=== PATIENT | female | born 1970 | race Caucasian/White ===

== ENCOUNTER → 2024-01-19 13:58 | Outpatient (REF) | payer BC, SELFPAY | LOC: HWWDC 13:58 | PROVIDERS: ATTENDING PHYSICIAN Nurse Practitioner Family | DX: Z12.31 Encounter for screening mammogram for malignant neoplasm of breast (principal) | CPT/HCPCS: 77063; 77067 ==

== ENCOUNTER → 2024-01-26 08:37 | Outpatient (REF) | payer BC, SELFPAY | LOC: WDC 08:37 | PROVIDERS: ATTENDING PHYSICIAN Nurse Practitioner Family | DX: R92.8 Other abnormal and inconclusive findings on diagnostic imaging of breast (principal) | CPT/HCPCS: 77065 ==

== ENCOUNTER → 2024-02-09 13:04 | Outpatient (REF) | payer BC, SELFPAY | LOC: RCS 13:04 | PROVIDERS: ATTENDING PHYSICIAN Nurse Practitioner Family | DX: R60.9 Edema, unspecified (principal); Z82.49 Family history of ischemic heart disease and other diseases of the circulatory system | CPT/HCPCS: 93306 ==

== ENCOUNTER → 2024-07-25 11:13 | Outpatient (REF) | payer BC, SELFPAY | LOC: WDC 11:13 | PROVIDERS: ATTENDING PHYSICIAN Nurse Practitioner Family | DX: R92.8 Other abnormal and inconclusive findings on diagnostic imaging of breast (principal) | CPT/HCPCS: 77061; 77065 ==

== ENCOUNTER 2024-10-07 23:48 | Emergency (ER) | payer BC, SELFPAY ==
[2024-10-07 23:50] VITALS: BP 160/94
[2024-10-08 00:35] VITALS: BMI 41.6
--- NOTE | 2024-10-08 01:00 | ED.GENMED ---
History of Present Illness
General
Chief Complaint: Back Pain
Time Seen by Provider: 10/08/24 00:34
History of Present Illness
History of Present Illness:
Patient is a 54-year-old woman with history of factor V Leiden, prior PE not currently on anticoagulation presenting to close left flank pain. Patient states that she had a fall last week. She did not notice any back pain up until yesterday. She
does state that she might have been distracted from the knee pain. However for the past day she has had left-sided back pain. It has been slowly traveling up her back. She is concerned that she might have a blood clot as her grandfather was
diagnosed with his PE with back pain that they first thought was musculoskeletal pain. No hemoptysis. No leg swelling. No long car rides or plane rides. No urinary symptoms. The pain is worse with movement.
Past History
Past History
ED Past Medical History: Asthma (Allergy induced) and Other (Pulmonary emboli, Factor Five Leiden)
ED Past Surgical History: Appendectomy and Cholecystectomy
Social History
Tobacco: Non-smoker
Alcohol: Occasional
Personal:
Living: with family
Employment: Employed
Family History
Family History: Negative Early CAD or Sudden
Phy Exam
Physical Exam
Physical Exam:
GENERAL: in no acute distress
HEENT: normocephalic, extraocular movements intact, moist oral mucosa
NECK: normal inspection
Back: Tenderness to palpation to the upper mid back, no rash
RESPIRATORY: no respiratory distress, clear to auscultation bilaterally
CARDIOVASCULAR: regular rate and rhythm
ABDOMEN/: soft, non-distended, non-tender to palpation, no rebound or guarding, no CVA tenderness
EXTREMITIES: non-tender, no edema/swelling
NEUROLOGIC: awake and alert, moves all extremities
SKIN: warm
Course
Orders/Labs/Results
Orders:
Orders
10/08/24 00:35
HCG, Urine Qualitative Screen Urgent
Date Specimen was Collected: 10/08/24
Time Specimen was Collected: 00:24
Comment: ADD ON
Urinalysis Reflex To Culture Urgent
Date Specimen was Collected: 10/08/24
Time Specimen was Collected: 00:24
Urine Microscopic Reflex Cult Urgent
10/08/24 00:58
Acetaminophen [Tylenol] 650 mg PO NOW STA
Ketorolac [Toradol] 15 mg IM NOW STA
10/08/24 00:59
Add On- LAB Urgent
Tests Added?: urine hcg qual
10/08/24 01:11
Lidocaine [Lidocaine 4% Patch] 1 patch .ROUTE .[facility]
10/08/24 01:21
Basic Metabolic Panel Urgent
D-Dimer Urgent
10/08/24 08:00
Lidocaine [Lidocaine 4% Patch] 1 patch TOPICAL DAILY
Apply Lidocaine patch(s) to:: left mid back
Abnormal Lab Results
10/08/24
00:35
Ur Occult Blood Reflex 1+ A
(Negative)
Urine Bacteria (Reflex) Few A
(Negative)
Vital Signs
Initial and Last Documented VS:
Initial Vital Signs
Pulse Resp BP Pulse Ox
80 20 160/94 99
10/07/24 23:50 10/07/24 23:50 10/07/24 23:50 10/07/24 23:50
Last Documented Vital Signs
Temp Pulse Resp BP Pulse Ox
98.2 F 80 20 160/94 99
10/08/24 00:37 10/07/24 23:50 10/07/24 23:50 10/07/24 23:50 10/07/24 23:50
MDM/Problems Addressed
Differential Diagnosis Includes:
Patient is a 54-year-old woman with history of factor V deficiency, prior PE not on anticoagulation presenting to the emergency department with left back pain. Vitals are unremarkable and exam does show reproducible tenderness. Likely
musculoskeletal pain. Considered urine infection or PE though less likely. History and exam not consistent with kidney stone. Will treat with anti-inflammatory.
*Critical Care Note
Total Time (30-74mins, 75-104mins- exclusive of procedures): Not Applicable
Update Note
Update Note:
Patient called back to bedside as she states that she is flying out for a work trip for the next week. She is extremely worried about a blood clot and would like that to be ruled out. Will place basic blood work and check a D-dimer.
Urine is contaminated with significant epithelial cells. However patient really without any urinary symptoms so we will hold off on repeating. She is not . Pending blood work at this time. Patient signed out to oncoming attending pending
blood work.
ED Attending Note
-
Portions of this chart may have been created with voice recognition software.� Occasional wrong word or��sound alike� substitutions may have occurred due to the inherent limitations of voice recognition software.
Discharge Plan
Departure
Prescriptions:
No Action
prenat.vits,freddy,[id number] [ Vitamin] 1 TAB tablet
1 tab PO
Referrals:
Samson Guerrero CRNP [Family Provider] -
Interventions
Interventions:
*Risk Screen - Suicide Last Done: 10/07/24 23:50
*General Assessment Last Done: 10/07/24 23:50
*Neglect/Abuse Screening Last Done: 10/07/24 23:50
ED- Fall Risk Assessment Last Done: 10/07/24 23:50
*ED COVID-19 Vaccine History Last Done: 10/07/24 23:50
ED-Musculoskeletal Assessment Last Done: 10/08/24 00:46
Discharge Date and Time
Print Language: FAROESE
[2024-10-08 01:06] LABS: Urine Albumin Negative (Neg - Trace); Urine Bilirubin Negative (Negative); Urine Character Clear (Clear); Urine Color Yellow; Urine Glucose Negative (Negative); Urine Ketone Negative (Negative); Urine Leukocyte Negative (Negative); Urine Nitrite Negative (Negative); Urine Occult Blood 1+ (Negative); Urine Urobilinogen Negative (Neg - 1+)
[2024-10-08 01:16] LABS: HCG, Urine Qualitative Screen Negative
[2024-10-08] MEDS: LIDOCAINE 4% PATCH 1 PATCH TOPICAL (01:18)
[2024-10-08] MEDS: TYLENOL 650 MG PO (01:19)
[2024-10-08] MEDS: TORADOL 15 MG IM (01:19)
[2024-10-08 01:35] LABS: Urine Bacteria Few (Negative); Urine Red Blood Cell 0-2 /HPF (0-2); Urine Squamous Cell >30 /LPF (Few); Urine White Cell 0-2 /HPF (0-5)
[2024-10-08 01:46] LABS: D-Dimer 0.76 ug/mlFEU (0.00-0.50)
[2024-10-08 01:48] LABS: Blood Urea Nitrogen 16 mg/dl (7-17); Calcium 9.6 mg/dl (8.4-10.2); Carbon Dioxide 23 mmol/L (22-30); Chloride 105 mmol/L (98-107); Estimated Creatinine Clearance 113 ml/min; Glucose 107 mg/dl (70-99); Potassium 4.6 mmol/L (3.5-5.1); Sodium 137 mmol/L (135-145); eGFR > 60.00
[2024-10-08 02:21] VITALS: BP 125/72
--- NOTE | 2024-10-08 03:37 | ED.GENMED ---
History of Present Illness
General
Chief Complaint: Back Pain
Time Seen by Provider: 10/08/24 00:34
Past History
Past History
ED Past Medical History: Asthma (Allergy induced) and Other (Pulmonary emboli, Factor Five Leiden)
ED Past Surgical History: Appendectomy and Cholecystectomy
Social History
Tobacco: Non-smoker
Alcohol: Occasional
Personal:
Living: with family
Employment: Employed
Family History
Family History: Negative Early CAD or Sudden
Course
Orders/Labs/Results
Orders:
Orders
10/08/24 00:35
HCG, Urine Qualitative Screen Urgent
Date Specimen was Collected: 10/08/24
Time Specimen was Collected: 00:24
Comment: ADD ON
Urinalysis Reflex To Culture Urgent
Date Specimen was Collected: 10/08/24
Time Specimen was Collected: 00:24
Urine Microscopic Reflex Cult Urgent
10/08/24 00:58
Acetaminophen [Tylenol] 650 mg PO NOW STA
Ketorolac [Toradol] 15 mg IM NOW STA
10/08/24 00:59
Add On- LAB Urgent
Tests Added?: urine hcg qual
10/08/24 01:11
Lidocaine [Lidocaine 4% Patch] 1 patch .ROUTE .[facility]
10/08/24 01:21
Basic Metabolic Panel Urgent
D-Dimer Urgent
10/08/24 02:03
CT Chest PE Study Urgent
Comment:
Reason For Exam: elev ddimer , factor V leiden
10/08/24 08:00
Lidocaine [Lidocaine 4% Patch] 1 patch TOPICAL DAILY
Apply Lidocaine patch(s) to:: left mid back
Abnormal Lab Results
10/08/24 10/08/24
00:35 01:21
D-Dimer 0.76 H ug/mlFEU
(0.00-0.50)
Glucose 107 H mg/dl
(70-99)
Ur Occult Blood Reflex 1+ A
(Negative)
Urine Bacteria (Reflex) Few A
(Negative)
10/08/24 01:21
Vital Signs
Initial and Last Documented VS:
Initial Vital Signs
Pulse Resp BP Pulse Ox
80 20 160/94 99
10/07/24 23:50 10/07/24 23:50 10/07/24 23:50 10/07/24 23:50
Last Documented Vital Signs
Temp Pulse Resp BP Pulse Ox
97.2 F 79 18 125/72 100
10/08/24 02:21 10/08/24 02:21 10/08/24 02:21 10/08/24 02:21 10/08/24 02:21
Update Note
Update Note:
Comparison October 15, 2021
CTA chest with IV contrast
IMPRESSION:
No pulmonary embolus. Technically adequate study. No thoracic aneurysm or dissection.
Lungs are clear.
Mediastinal and cardiac structures are unremarkable. Moderate hiatal hernia. Mild esophageal wall thickening, which may be due to esophagitis or recent vomiting.
Visualized portions of the upper abdomen are unremarkable.
ED Attending Note
-
Portions of this chart may have been created with voice recognition software.� Occasional wrong word or��sound alike� substitutions may have occurred due to the inherent limitations of voice recognition software.
Discharge Plan
Departure
Patient Disposition: Home (Routine Discharge)
Date of Disposition: 10/08/24
Time of Disposition: 03:37
Patient with high blood pressure during this ER visit?: No
Discharge Problem:
Muscle pain
Instructions: Back Pain
Prescriptions:
No Action
prenat.vits,freddy,[id number] [ Vitamin] 1 TAB tablet
1 tab PO
Referrals:
Samson Guerrero CRNP [Family Provider] -
Activity Restrictions/Additional Instructions:
We discussed pain medications:
You may take Tylenol (also known as Acetaminophen) for pain.
You may take 1000mg Acetaminophen (two extra-strength tablets) per dose, which should be taken every 6-8 hours, or three times a day.
If you have normal strength Tylenol, you can take 650mg (two normal strength tablets) every 4-6 hours.
Do not take more than 3,000mg (3 grams) of Acetaminophen per day.
Never take more than as directed on the bottle.
You may also take Ibuprofen (also known as Motrin or Advil). If taking with Tylenol, alternate and take between dosing.
You may take 400-800mg of Ibuprofen per dose, which should be taken every 6-8 hours.
Do not take more than 3200mg (3.2 grams) of Ibuprofen per day.
You may also benefit from using a Lidocaine Patch (also known as 'Salon Pas'), which is an over the counter pain patch.
Place it just over the site of pain, avoiding areas of skin damage, as per instructions on the patch.
Please see your primary care doctor soon to be reevaluated and to make sure that you are improving. We have included information about establishing care with a doctor if you do not have one.
We talked about your evaluation, diagnosis, and treatment in the Emergency Department today. You must see your primary doctor for recheck and followup care in order to evaluate your progress or any changes. Have your doctor recheck the test
results/information from the ED visit. As discussed, RETURN to the ED if you develop worsening/changing symptoms or have no improvement in symptoms after the treatments provided.
Interventions
Interventions:
*Risk Screen - Suicide Last Done: 10/07/24 23:50
*General Assessment Last Done: 10/07/24 23:50
*Neglect/Abuse Screening Last Done: 10/07/24 23:50
ED- Fall Risk Assessment Last Done: 10/07/24 23:50
*ED COVID-19 Vaccine History Last Done: 10/07/24 23:50
ED-Musculoskeletal Assessment Last Done: 10/08/24 00:46
Discharge Date and Time
Print Language: SERBIAN
[2024-10-08 03:55] VITALS: BP 120/84
== END 2024-10-08 03:55 | disposition home or self-care (01) ==
LOC: EMR 23:48
PROVIDERS: Student in an Organized Health Care Education/Training Program; EMERGENCY PHYSICIAN Student in an Organized Health Care Education/Training Program; FAMILY PHYSICIAN Nurse Practitioner Family
DX: M79.10 Myalgia, unspecified site (principal); J45.909 Unspecified asthma, uncomplicated; D68.51 Activated protein C resistance; Z86.711 Personal history of pulmonary embolism; Z90.49 Acquired absence of other specified parts of digestive tract
CPT/HCPCS: 99284; 71275; 80048; 81003; 81015; 81025; 85379; Q9967

== ENCOUNTER → 2025-01-22 13:30 | Outpatient (REF) | payer BC, SELFPAY | LOC: WDC 13:30 | PROVIDERS: ATTENDING PHYSICIAN Nurse Practitioner Family | DX: Z12.31 Encounter for screening mammogram for malignant neoplasm of breast (principal) | CPT/HCPCS: 77063; 77067 ==